=== PATIENT | male | born 1990 | race Caucasian/White ===

== ENCOUNTER 2021-05-01 13:00 | Emergency (ER) | payer BC ==
[2021-05-01] MEDS ORDERED: Sodium Chloride 0.9% 1,000 ML IV SCH (13:15)
[2021-05-01] MEDS ORDERED: Sodium Chloride 0.9% 10 ML Syringe FLUSH PRN (13:15)
[2021-05-01] MEDS ORDERED: Acetaminophen 500 MG Tab PO ONE (13:15)
[2021-05-01] MEDS ORDERED: Ondansetron 4 MG/2 ML SDV IVPUSH ONE (13:28)
[2021-05-01] MEDS ORDERED: Acetaminophen 500 MG Tab ONE (13:37)
--- NOTE | 2021-05-01 13:47 | EDM.PDOC ---
ED HPI GENERAL MEDICAL PROBLEM - General Chief Complaint: General Stated Complaint: fever, not feeling well Time Seen by Provider: 05/01/21 13:20 Source of Information: Reports: Patient History Limitations: Reports: No Limitations - History of Present Illness INITIAL COMMENTS - FREE TEXT/NARRATIVE: Patient presents to the ED for fatigue, body aches, fever, cough, diarrhea, loss of smell and taste. Patient states that he started to feel unwell about 5 days ago. He Had fatigue and body aches to start, then he developed fever, cough, loss of smell and taste. Decreased oral intake as he is having diarrhea with every thing he eats or drinks. No black or blood in it. Took some sudafed and immodium yesterday for it,. He did attend Thanksgiving dinner with his 's family, even while feeling unwell. He is not vaccinated against covid 19 but thinks most of them are and his is. No other sick contacts that he is aware of but he works at [employer] with known cases of Covid 19. he does not take any medications, chews tobacoo, drinks alcohol socially and no illicit drug use. No allergies. Came in today as he feels dehydrated and weak Onset Date: 04/27/21 Duration: Getting Worse Associated Symptoms: Reports: Cough, Fever/Chills, Headaches, Loss of Appetite, Malaise, Shortness of Breath, Weakness - Related Data Allergies Allergy/AdvReac Type Severity Reaction Status Date / Time No Known Allergies Allergy Verified 05/01/21 15:50 Home Meds: Home Meds Albuterol [Ventolin HFA] 1 puff INH Q4H PRN #1 gm 05/01/21 [Rx] Benzonatate [Tessalon Perles] 100 mg PO TID PRN #30 cap 05/01/21 [Rx] Past Medical History - Past Surgical History Head Surgeries/Procedures: Reports: None HEENT Surgical History: Reports: Other (See Below) (pe tubes) Cardiovascular Surgical History: Reports: None Respiratory Surgical History: Reports: None GI Surgical History: Reports: None Male Surgical History: Reports: None Social & Family History - Tobacco Use Tobacco Use Status *Q: Current Every Day Tobacco User Tobacco Use Within Last Twelve Months: Smokeless Tobacco Years of Tobacco use: 13 Packs/Tins Daily: 1 - Caffeine Use Caffeine Use: Reports: Soda - Alcohol Use Alcohol Use History: Yes Alcohol Use Frequency: Weekly - Recreational Drug Use Recreational Drug Use: No Drug Use in Last 12 Months: No ED ROS GENERAL - Review of Systems Review Of Systems: See Below Constitutional: Reports: Fever, Malaise, Weakness, Fatigue, Decreased Appetite (loss of smell and taste) HEENT: Reports: Rhinitis. Denies: Ear Discharge, Eye Discharge, Nose Pain, Throat Pain, Throat Swelling Respiratory: Reports: Shortness of Breath, Cough. Denies: Wheezing, Sputum, Hemoptysis Cardiovascular: Reports: Dyspnea on Exertion, Lightheadedness. Denies: Chest Pain, Blood Pressure Problem, Edema Endocrine: Reports: Fatigue GI/Abdominal: Reports: Diarrhea, Decreased Appetite, Nausea. Denies: Black Stool, Bloody Stool, Hematemesis, Hematochezia, Melena, Mucous in Stool, Vomiting Musculoskeletal: Reports: Muscle Pain. Denies: Neck Pain Skin: Reports: No Symptoms Neurological: Reports: Headache, Weakness, Other (loss of smell and taste) Psychiatric: Reports: No Symptoms Hematologic/Lymphatic: Reports: No Symptoms Immunologic: Reports: No Symptoms ED EXAM, GENERAL - Physical Exam Exam: See Below Exam Limited By: No Limitations General Appearance: Alert, WD/WN, No Apparent Distress Eye Exam: Bilateral Eye: EOMI, Normal Inspection, PERRL Ears: Hearing Grossly Normal Nose: Normal Inspection, Normal Mucosa, No Blood Throat/Mouth: Other (dry mucous membranes) Head: Atraumatic Neck: Normal Inspection, Supple, Non-Tender Respiratory/Chest: Decreased Breath Sounds (at bases, shallo). No: No Respiratory Distress, Lungs Clear, No Accessory Muscle Use, Respiratory Distress, Crackles, Rales Cardiovascular: Normal Peripheral Pulses, No Edema, No Murmur, Tachycardia GI/Abdominal: Normal Bowel Sounds, Soft, Non-Tender, No Organomegaly, No Distention, No Abnormal Bruit, No Mass Extremities: Normal Inspection, Normal Range of Motion, Non-Tender, No Pedal Edema Neurological: Alert, Oriented, CN II-XII Intact, Normal Cognition Psychiatric: Normal Affect Skin Exam: No: Warm Lymphatic: No Adenopathy #1 Interpretation EKG Date: 05/01/21 Time: 13:48 Rhythm: NSR Rate (Beats/Min): 105 (tachycardia) [place]: Normal P-Wave: Present QRS: Normal ST-T: Normal QT: Normal Comparison: NA - No Prior EKG Course - Vital Signs Last Recorded V/S: Last Vital Signs Temp 37.5 C 05/01/21 14:43 Pulse 120 H 05/01/21 13:10 Resp 20 05/01/21 13:10 BP 131/84 05/01/21 13:10 Pulse Ox 92 L 05/01/21 13:10 - Orders/Labs/Meds Orders: Active Orders 24 hr Category Date Time Status Peripheral IV Care [RC] . DIRECTED Care 05/01/21 13:15 Active Vital Signs [RC] Q15M Care 05/01/21 15:46 Active Chest 1V Frontal [CR] Stat Exams 05/01/21 13:29 Taken PE Chest [Ang Chest] [CT] Stat Exams 05/01/21 14:13 Taken UA RFX REID AND CULT IF INDIC [URIN] Stat Lab 05/01/21 13:15 Ordered Bamlanivimab 700 mg Med 05/01/21 15:58 Active Etesevimab [Etesevimab (EUA)] 1,400 mg Sodium Chloride 0.9% [Normal Saline] 250 ml IV ONETIME EPINEPHrine [Adrenalin] Med 05/01/21 15:46 Active 0.3 mg IM ASDIRECTED PRN Famotidine [Pepcid] Med 05/01/21 15:46 Active 20 mg IVPUSH ASDIRECTED PRN Sodium Chloride 0.9% [Normal Saline] 1,000 ml Med 05/01/21 13:15 Active IV ASDIRECTED Sodium Chloride 0.9% [Saline Flush] Med 05/01/21 13:15 Active 10 ml FLUSH ASDIRECTED PRN Sodium Chloride 0.9% [Saline Flush] Med 05/01/21 16:00 Active 30 ml FLUSH ASDIRECTED diphenhydrAMINE [Benadryl] Med 05/01/21 15:46 Active 50 mg IVPUSH ASDIRECTED PRN methylPREDNISolone Sod Succ [Solu-MEDROL] Med 05/01/21 15:46 Active 125 mg IVPUSH ASDIRECTED PRN Peripheral IV Insertion Adult [OM.PC] Routine Oth 05/01/21 13:15 Ordered Medication Orders Diphenhydramine HCl (Diphenhydramine 50 Mg/Ml Sdv) 50 mg IVPUSH ASDIRECTED PRN PRN Reason: hypersensitivity reaction Epinephrine HCl (Epinephrine 1 Mg/Ml Sdv) 0.3 mg IM ASDIRECTED PRN PRN Reason: hypersensitivity reaction Famotidine (Famotidine 20 Mg/2 Ml Sdv) 20 mg IVPUSH ASDIRECTED PRN PRN Reason: hypersensitivity reaction Sodium Chloride (Normal Saline) 1,000 mls @ 999 mls/hr IV ASDIRECTED [facility] Last Admin: 05/01/21 13:33 Dose: 999 mls/hr Documented by: RACHEL Bamlanivimab 700 mg/Etesevimab 1,400 mg/ Sodium Chloride 310 mls @ 310 mls/hr IV ONETIME ONE Stop: 05/01/21 16:45 Methylprednisolone Sodium Succinate (Methylprednisolone Sodium Succinate 125 Mg/2 Ml Sdv) 125 mg IVPUSH ASDIRECTED PRN PRN Reason: hypersensitivity reaction Sodium Chloride (Sodium Chloride 0.9% 10 Ml Syringe) 10 ml FLUSH ASDIRECTED PRN PRN Reason: Keep Vein Open Sodium Chloride (Sodium Chloride 0.9% 10 Ml Syringe) 30 ml FLUSH ASDIRECTED [facility] Labs: Laboratory Tests 05/01/21 05/01/21 05/01/21 Range/Units 13:03 13:20 13:20 WBC 4.8 (4.0-10.2) K/uL RBC 5.51 H (4.33-5.41) M/uL Hgb 16.5 (13.1-16.8) g/dL Hct 47.1 (39.0-49.0) % MCV 85.5 (84.0-98.0) fL MCH 29.9 (28.2-33.3) pg MCHC 35.0 (31.7-36.0) g/dL RDW 13.0 (11.2-14.1) % Plt Count 190 (150-350) K/uL Neut % (Auto) 72.4 (45.0-80.0) % Lymph % (Auto) 18.4 (10.0-50.0) % [place] % (Auto) 9.0 (2.0-14.0) % Eos % (Auto) 0.0 (0.0-5.0) % Baso % (Auto) 0.2 (0.0-2.0) % Neut # (Auto) 3.46 (1.40-7.00) K/uL Lymph # (Auto) 0.88 (0.50-3.50) K/uL [place] # (Auto) 0.43 (0.00-1.00) K/uL Eos # (Auto) 0.00 (0.00-0.50) K/uL Baso # (Auto) 0.01 (0.00-0.20) K/uL D-Dimer, Quantitative 1160 H (0-400) ng/mL Sodium (136-145) mmol/L Potassium (3.5-5.1) mmol/L Chloride (98-107) mmol/L Carbon Dioxide (21.0-32.0) mmol/L Anion Gap (7-15) meq/L BUN (7-18) mg/dL Creatinine (0.51-1.17) mg/dL Est Cr Clr Drug Dosing Estimated GFR (MDRD) mL/min Glucose (70-99) mg/dL Lactic Acid (0.4-2.0) mmol/L Calcium (8.5-10.1) mg/dL Total Bilirubin (0.2-1.0) mg/dL AST (15-37) U/L ALT (12-78) U/L Alkaline Phosphatase (46-116) IU/L Troponin I High Sens (<=76) ng/L C-Reactive Protein (<=0.9) mg/dL Total Protein (6.4-8.2) g/dL Albumin (3.4-5.0) g/dL SARS-CoV-2 Ag (Rapid) Positive A (NEGATIVE) 05/01/21 05/01/21 Range/Units 13:20 13:20 WBC (4.0-10.2) K/uL RBC (4.33-5.41) M/uL Hgb (13.1-16.8) g/dL Hct (39.0-49.0) % MCV (84.0-98.0) fL MCH (28.2-33.3) pg MCHC (31.7-36.0) g/dL RDW (11.2-14.1) % Plt Count (150-350) K/uL Neut % (Auto) (45.0-80.0) % Lymph % (Auto) (10.0-50.0) % [place] % (Auto) (2.0-14.0) % Eos % (Auto) (0.0-5.0) % Baso % (Auto) (0.0-2.0) % Neut # (Auto) (1.40-7.00) K/uL Lymph # (Auto) (0.50-3.50) K/uL [place] # (Auto) (0.00-1.00) K/uL Eos # (Auto) (0.00-0.50) K/uL Baso # (Auto) (0.00-0.20) K/uL D-Dimer, Quantitative (0-400) ng/mL Sodium 137 (136-145) mmol/L Potassium 5.1 (3.5-5.1) mmol/L Chloride 98 (98-107) mmol/L Carbon Dioxide 26.2 (21.0-32.0) mmol/L Anion Gap 12.8 (7-15) meq/L BUN 19 H (7-18) mg/dL Creatinine 0.96 (0.51-1.17) mg/dL Est Cr Clr Drug Dosing TNP Estimated GFR (MDRD) > 60 mL/min Glucose 100 H (70-99) mg/dL Lactic Acid 0.9 (0.4-2.0) mmol/L Calcium 8.4 L (8.5-10.1) mg/dL Total Bilirubin 1.0 (0.2-1.0) mg/dL AST 60 H (15-37) U/L ALT 43 (12-78) U/L Alkaline Phosphatase 59 (46-116) IU/L Troponin I High Sens 5 (<=76) ng/L C-Reactive Protein 8.2 H (<=0.9) mg/dL Total Protein 7.8 (6.4-8.2) g/dL Albumin 3.4 (3.4-5.0) g/dL SARS-CoV-2 Ag (Rapid) (NEGATIVE) Meds: Medications Generic Name Dose Route Start Last Admin Trade Name Freq PRN Reason Stop Dose Admin Diphenhydramine HCl 50 mg 05/01/21 15:46 Diphenhydramine 50 Mg/Ml Sdv IVPUSH ASDIRECTED PRN hypersensitivity reaction Epinephrine HCl 0.3 mg 05/01/21 15:46 Epinephrine 1 Mg/Ml Sdv IM ASDIRECTED PRN hypersensitivity reaction Famotidine 20 mg 05/01/21 15:46 Famotidine 20 Mg/2 Ml Sdv IVPUSH ASDIRECTED PRN hypersensitivity reaction Sodium Chloride 1,000 mls @ 999 mls/hr 05/01/21 13:15 05/01/21 13:33 Normal Saline IV 999 mls/hr ASDIRECTED [facility] Administration Bamlanivimab 700 mg/ 310 mls @ 310 mls/hr 05/01/21 15:58 Etesevimab 1,400 mg/ Sodium IV 05/01/21 16:45 Chloride ONETIME ONE Methylprednisolone Sodium Succinate 125 mg 05/01/21 15:46 Methylprednisolone Sodium Succinate 125 Mg/2 Ml Sdv IVPUSH ASDIRECTED PRN hypersensitivity reaction Sodium Chloride 10 ml 05/01/21 13:15 Sodium Chloride 0.9% 10 Ml Syringe FLUSH ASDIRECTED PRN Keep Vein Open Sodium Chloride 30 ml 05/01/21 16:00 Sodium Chloride 0.9% 10 Ml Syringe FLUSH ASDIRECTED [facility] Discontinued Medications Generic Name Dose Route Start Last Admin Trade Name Freq PRN Reason Stop Dose Admin Acetaminophen 1,000 mg 05/01/21 13:15 05/01/21 13:33 Acetaminophen 500 Mg Tab PO 05/01/21 13:16 1,000 mg ONETIME ONE Administration Acetaminophen Confirm 05/01/21 13:37 05/01/21 14:03 Acetaminophen 500 Mg Tab Administered 05/01/21 13:38 Not Given Dose 500 mg .ROUTE .STK-MED ONE Bamlanivimab 700 mg/ 160 mls @ 310 mls/hr 05/01/21 15:46 Etesevimab 1,400 mg/ Sodium IV 05/01/21 16:16 Chloride ONETIME ONE Iopamidol 100 ml 05/01/21 14:22 05/01/21 15:16 Iopamidol 755 Mg/Ml 100 Ml Bottle IVPUSH 05/01/21 14:23 100 ml ONETIME ONE Administration Ondansetron HCl 4 mg 05/01/21 13:28 05/01/21 13:33 Ondansetron 4 Mg/2 Ml Sdv IVPUSH 05/01/21 13:29 4 mg ONETIME ONE Administration - Radiology Interpretation Free Text/Narrative:: preliminary chest x-ay with significant covid like infiltrates. official report pending. CT PE protocol, discussed with [facility]. No PE, covid pneumonia noted, in all five lobes no other acute changes. - Re-Assessments/Exams Free Text/Narrative Re-Assessment/Exam: concern for covid 19, placed in isolation, sats 92% after walking to room and resting, heart rate 120. Will evaluate with labs, give iv fluids, zofran and tylenol as he has a fever. 05/01/21 13:56 Positive for covid 19. Will ambulate in the room after some fluids and tylenol in to see if his oxygen can maintain with exertion. he is obese and at risk for progression of his covid due to this. advised to contact his family that all exposed if vaccinated should watch for symptoms and get tested if they arise, and if not vaccinated, quarantine and get tested with symptoms or at day 5 05/01/21 14:06 chest x-ray with significant covid type appearance 05/01/21 14:14 ddimer returns with > 1000, will get a ct pe protocol. will ambulate in the room and check o2 sats. BMI is 42. With ambulation he maintains 90 but does drop at once to 89%. Will await the PE protocol results prior to treatment decision. 05/01/21 16:14 Patient is agreeable to monoclonal antibody infusion. Will give and send home with albuterol inhaler and tessalon. encouraged to return for increased confusion, increased shortness of breath, feeling worse. Sats are 90%. Discussed prone position at home, incentive spirometer Departure - Departure Time of Disposition: 18:00 Disposition: Home, Self-Care 01 Condition: Fair Clinical Impression: COVID-19 - Discharge Information *PRESCRIPTION DRUG MONITORING PROGRAM REVIEWED*: No *COPY OF PRESCRIPTION DRUG MONITORING REPORT IN PATIENT STACI: No Prescriptions: Benzonatate [Tessalon Perles] 100 mg PO TID PRN #30 cap PRN Reason: Cough Albuterol [Ventolin HFA] 1 puff INH Q4H PRN #1 gm PRN Reason: Shortness Of Breath Instructions: COVID-19 Frequently Asked Questions, What You Should Know About COVID-19 to Protect Yourself and Others - [facility], 10 Things You Can Do to Manage Your COVID-19 Symptoms at Home - [facility] (12/17/2020), Prone Position Therapy Referrals: PCP,None [Primary Care Provider] - Forms: ED Department Discharge Additional Instructions: control fever with tylenol and motrin alternating. Take in fluids and attempt to eat. It is important that you quarantine for at least 5 more days, avoid people in your home, but wear a mask around the, . Use the albuterol inhaler to help with cough and shortness of breath, Use the tessalon perrles for cough or over the counter cough medications. Use the incentive spirometer every hour while awake, 10 repetitions. Prone position ( on your stomach) for at least 12 hours a day will be helpful. Return to the Ed for increased shortness of breath, confusion, increasing fatigue. Your oxygen is borderline at 90% on room air with ambulation. this can get worse. Most people take about 24 hours from the monoclonal antibodies to start to feel better. anyone in contact with you needs to monitor for symptoms if they are vaccinated and get tested for any symptoms. Anyone not vaccinated that you have had contact with needs to quarantine for 5 more day and should be tested for any symptoms. Sepsis Event Note (ED) - Evaluation Sepsis Screening Result: No Definite Risk - Focused Exam Vital Signs: Vital Signs Temp Pulse Resp BP Pulse Ox 05/01/21 14:43 37.5 C 05/01/21 13:16 38.8 C H 05/01/21 13:10 38.8 C H 120 H 20 131/84 92 L - My Orders Last 24 Hours: My Active Orders 05/01/21 13:15 Peripheral IV Care [RC] . DIRECTED UA RFX REID AND CULT IF INDIC [URIN] Stat Sodium Chloride 0.9% [Normal Saline] 1,000 ml IV ASDIRECTED Sodium Chloride 0.9% [Saline Flush] 10 ml FLUSH ASDIRECTED PRN Peripheral IV Insertion Adult [OM.PC] Routine 05/01/21 13:29 Chest 1V Frontal [CR] Stat 05/01/21 14:13 PE Chest [Ang Chest] [CT] Stat 05/01/21 15:46 Vital Signs [RC] Q15M EPINEPHrine [Adrenalin] 0.3 mg IM ASDIRECTED PRN Famotidine [Pepcid] 20 mg IVPUSH ASDIRECTED PRN diphenhydrAMINE [Benadryl] 50 mg IVPUSH ASDIRECTED PRN methylPREDNISolone Sod Succ [Solu-MEDROL] 125 mg IVPUSH ASDIRECTED PRN 05/01/21 15:58 Bamlanivimab 700 mg Etesevimab [Etesevimab (EUA)] 1,400 mg Sodium Chloride 0.9% [Normal Saline] 250 ml IV ONETIME 05/01/21 16:00 Sodium Chloride 0.9% [Saline Flush] 30 ml FLUSH ASDIRECTED - Assessment/Plan Last 24 Hours: My Active Orders 05/01/21 13:15 Peripheral IV Care [RC] . DIRECTED UA RFX REID AND CULT IF INDIC [URIN] Stat Sodium Chloride 0.9% [Normal Saline] 1,000 ml IV ASDIRECTED Sodium Chloride 0.9% [Saline Flush] 10 ml FLUSH ASDIRECTED PRN Peripheral IV Insertion Adult [OM.PC] Routine 05/01/21 13:29 Chest 1V Frontal [CR] Stat 05/01/21 14:13 PE Chest [Ang Chest] [CT] Stat 05/01/21 15:46 Vital Signs [RC] Q15M EPINEPHrine [Adrenalin] 0.3 mg IM ASDIRECTED PRN Famotidine [Pepcid] 20 mg IVPUSH ASDIRECTED PRN diphenhydrAMINE [Benadryl] 50 mg IVPUSH ASDIRECTED PRN methylPREDNISolone Sod Succ [Solu-MEDROL] 125 mg IVPUSH ASDIRECTED PRN 05/01/21 15:58 Bamlanivimab 700 mg Etesevimab [Etesevimab (EUA)] 1,400 mg Sodium Chloride 0.9% [Normal Saline] 250 ml IV ONETIME 05/01/21 16:00 Sodium Chloride 0.9% [Saline Flush] 30 ml FLUSH ASDIRECTED
[2021-05-01 14:03] LABS: ANION GAP 12.8 meq/L (7-15); CHLORIDE,CL 98 mmol/L (98-107); SODIUM,NA 137 mmol/L (136-145)
[2021-05-01] MEDS ORDERED: Iopamidol 755 Mg/ML 100 ML Bottle IVPUSH ONE (14:22)
[2021-05-01] MEDS ORDERED: diphenhydrAMINE 50 MG/ML SDV IVPUSH PRN (15:46)
[2021-05-01] MEDS ORDERED: Famotidine 20 MG/2 ML SDV IVPUSH PRN (15:46)
[2021-05-01] MEDS ORDERED: EPINEPHrine 1 MG/ML SDV IM PRN (15:46)
[2021-05-01] MEDS ORDERED: Bamlanivimab 700 MG, ETESEVIMAB 1,400 MG in Sodium Chloride 0.9% 100 ML IV ONE (15:46)
[2021-05-01] MEDS ORDERED: methylPREDNISolone Sodium Succinate 125 MG/2 ML SDV IVPUSH PRN (15:46)
[2021-05-01] MEDS ORDERED: Sodium Chloride 0.9% 10 ML Syringe FLUSH SCH (16:00)
== END 2021-05-01 19:05 | disposition home or self-care (01) ==
LOC: LL.ED 13:00
DX: U07.1 COVID-19 (principal); R00.0 Tachycardia, unspecified; Z72.0 Tobacco use
CPT/HCPCS: 71045; 71275; 80053; 81001; 83605; 84484; 85025; 85379; 86140; 87426; 93005; 93010; 96374; 99284; 99284-25; A9270-GY; J2405; J7030; J7050; M0245; Q0245; Q9967